=== PATIENT | male | born 1985 | race Caucasian/White ===

== ENCOUNTER → 2023-02-11 15:30 | Outpatient (BNVA) | payer MEDICAID, SELFPAY | PROVIDERS: Visit Provider Family Medicine | DX: E11.9 Type 2 diabetes mellitus without complications (principal); I10 Essential (primary) hypertension | CPT/HCPCS: 80053; 80061; 83036; 84439; 84443; 85025 ==

== ENCOUNTER 2023-11-11 18:16 | Emergency (ER) | payer MEDICAID, SELFPAY ==
[2023-11-11 18:17] VITALS: BP 160/106; PULSE 107; RESP 18; TEMP 36.7; O2SAT 95; BMI 29.0
--- NOTE | 2023-11-11 18:44 | ED_ITS ---
HPI - Extremity Problem General: Chief complaint: Extremity Injury, Upper Stated complaint: Right Hand Finger Cut Time Seen by Provider: 11/11/23 18:25 History of Present Illness: Patient presents to the ER with a laceration on his left pinky finger. Patient tried to superglue and duct tape at home but he could not get it to stop bleeding. Bleeding is controlled here. Patient still has good range of motion and sensation of his entire fifth digit. Patient is unsure about his tetanus status. Review of Systems General: Reports: 10 or more systems reviewed and unremarkable except in HPI and below PFSH ED PFSH: Medical History ZACKARY (generalized anxiety disorder) Emphysema lung Moderate major depression Hypertension GERD (gastroesophageal reflux disease) Diabetes Family History Mother Cancer pancreatic Other CAD (coronary artery disease) Diabetes Hypertension Lung disease Psychiatric illness Denies family history of Clotting disorder Dementia Hyperlipidemia Chronic kidney disease (CKD) Anesthesia complication Bleeding disorder Stroke Social History Smoking and tobacco/nicotine status: former use of tobacco/nicotine Quit status (tobacco/nicotine): has quit using Year quit tobacco: 2016 Alcohol intake: never Substance/Drug Use: never Lives independently: Yes Marital status: Single Number of children: 0 Current occupational status: disabled Anna/Anabaptism: None Special anna needs: No Agree to transfusion: Yes Physical Exam Const: COMMON NORMALS: no acute distress, average body habitus, patient oriented x3, no limitations, healthy appearing, alert and well nourished HENMT: COMMON NORMALS: normocephalic, atraumatic, hearing grossly normal bilaterally, external ears normal, Normal external nose present, moist oral mucous membranes and oropharynx normal HEAD & SCALP: normocephalic and atraumatic NOSE: Normal external nose present EXTERNAL EAR: Yes external ears normal Neck/C-Spine: COMMON NORMALS: no JVD Chest: COMMONS NORMALS: normal palpation of entire chest wall Resp: COMMON NORMALS: normal respiratory effort, No retractions, No use of accessory muscles and clear to auscultation bilaterally AUSCULTATION: clear to auscultation bilaterally Cardio: COMMON NORMALS: no JVD, regular rate, regular rhythm, S1 normal heart sound present, S2 normal heart sound present, No gallops present (Cardio), No clicks present (Cardio), No murmurs present (Cardio) and No rub (Cardio) RATE: regular rate RHYTHM: regular rhythm HEART SOUNDS: S1 normal heart sound present and S2 normal heart sound present GI: COMMON NORMALS: Normal to inspection, nondistended, normoactive bowel sounds present and No hepatosplenomegaly present PALPATION: Yes No hepatosplenomegaly present Neuro: COMMON NORMALS: patient oriented x3 SENSORIUM/ORIENTATION: Yes alert Skin: NARRATIVE SKIN EXAM: Laceration to left pinky finger on the medial dorsal side. Neurovascular tendon distally intact. Procedures Laceration Laceration 1: Site: hand Side (If applicable): left Size (cm): 1 Description: linear Depth: simple, single layer Pre-repair: wound explored, irrigated extensively and deep structures intact Skin layer closed with: other (Dermabond) Course Vital Signs: Vital signs: Vital Signs Temperature 98.0 F 11/11/23 18:17 Pulse Rate 94 11/11/23 19:12 Respiratory Rate 16 11/11/23 19:12 Blood Pressure 160/106 11/11/23 18:17 Pulse Oximetry 96 11/11/23 19:12 Oxygen Delivery Me thod Room Air 11/11/23 18:17 MDM - Extremity (Nontraumatic) Medical Decision Making Patient's wound will be cleaned up by nurse, dermabonded, placed in splint and Coban. Differential Diagnosis Unlikely herpes zoster, gout, cellulitis, superficial thrombophlebitis, deep venous thrombosis of upper extremity, lower extremity edema or deep vein thrombosis of lower extremity Medical Records I reviewed the patient's medical records. Lab Data I reviewed the patient's lab results. No radiology studies performed this visit Discharge Plan Discharge Patient Disposition: Home Clinical Impression: Finger laceration Qualifiers: Encounter type: initial encounter Finger: little finger Damage to nail status: without damage Foreign body presence: without foreign body Laterality: left Qualified Code(s): S61.217A - Laceration without foreign body of left little finger without damage to nail, initial encounter Condition: Stable Prescriptions: No Action amlodipine 10 mg tablet 10 mg PO .qnightly Qty: 90 1RF paroxetine HCl 30 mg tablet 60 mg PO DAILY 90 Days Qty: 180 1RF buspirone 30 mg tablet 30 mg PO BID Qty: 180 2RF cyclobenzaprine 5 mg tablet 5 mg PO TID PRN (Reason: muscle spasm) Qty: 30 0RF hydroxyzine pamoate [Vistaril] 50 mg capsule 50 mg PO QID PRN (Reason: itching) Qty: 120 2RF omeprazole 40 mg capsule,delayed release(DR/EC) 40 mg PO DAILY Qty: 60 1RF budesonide-formoterol [Symbicort] 160-4.5 mcg/actuation HFA aerosol inhaler 2 puff inhalation BID Qty: 10.2 0RF albuterol sulfate [Ventolin HFA] 90 mcg/actuation HFA aerosol inhaler See Rx Instructions .ROUTE .COMPLEX Qty: 18 0RF Dose Instruction: INHALE 2 PUFFS BY MOUTH EVERY 6 HOURS NEEDED FOR SHORTNESS OF BREATH FOR WHEEZING Rx Instructions: INHALE 2 PUFFS BY MOUTH EVERY 6 HOURS NEEDED FOR SHORTNESS OF BREATH FOR WHEEZING losartan 50 mg tablet 50 mg PO DAILY Qty: 60 1RF metformin 500 mg tablet 500 mg PO DAILY Qty: 60 1RF Discharge Orders: Discharge ED (Routine); Ordered 11/11/23 Ordered By: Charly Vyas Referrals: Nicholas Harman MD [Primary Care Provider] - 1 week Patient Instructions: Finger Laceration (ED) Activity Restrictions/Additional Instructions: Keep splint on minimum of 7 days, keep wound clean and dry but do not soak in water. Allow the Dermabond to start peeling off on its own do not pick or pull at it. Follow-up with your family practice physician within 7 to 10 days for further evaluation and treatment as needed. Coding Level of Care Code ED Tower Crane Operator for Gabby Venegas
[2023-11-11] MEDS: tetanus-dipt-pertussis 0.5 mL SDV IM (19:01)
[2023-11-11 19:12] VITALS: PULSE 94; RESP 16; O2SAT 96
== END 2023-11-11 19:18 | disposition home or self-care (01) ==
PROVIDERS: Emergency Provider Emergency Medicine; PCP Family Medicine
DX: S61.217A Laceration without foreign body of left little finger without damage to nail, initial encounter (principal); Z79.84 Long term (current) use of oral hypoglycemic drugs; J43.9 Emphysema, unspecified; I10 Essential (primary) hypertension; E11.9 Type 2 diabetes mellitus without complications; Z87.891 Personal history of nicotine dependence; X58.XXXA Exposure to other specified factors, initial encounter; Z23 Encounter for immunization
CPT/HCPCS: 12001; 29130; 90471; 90715; 99282

== ENCOUNTER → 2024-03-19 15:48 | Outpatient (BNVA) | payer MEDICAID, SELFPAY | PROVIDERS: PCP Family Medicine; Visit Provider Family Medicine | DX: E11.9 Type 2 diabetes mellitus without complications | CPT/HCPCS: 80053; 83036 ==

== ENCOUNTER 2024-10-01 07:49 | Outpatient (CLI) | payer MEDICAID, SELFPAY ==
--- NOTE | 2024-10-01 08:15 | US_ITS ---
WS: [id number] RIGHT UPPER QUADRANT ULTRASOUND HISTORY: epigastric pain with gallbladder like symptoms COMPARISON: None available. Liver: 18.2 cm in length. Liver is measuring slightly enlarged. Coarse echotexture throughout the liver with mild heterogeneity. No mass identified and no intrahepatic duct dilatation. Portal Vein: Normal hepatopetal flow with monophasic waveform. Gallbladder: Neck of the gallbladder is difficult to image due to adjacent bowel gas. No stones or sludge identified. There is no wall thickening or pericholecystic fluid. CBD: 0.4 cm Pancreas: Obscured by bowel gas. Right kidney: 9.6 cm in length. Poorly visualized kidney due to body habitus. No hydronephrosis. Mass would be difficult to exclude. Aorta and IVC: Limited. No ascites. US/US gall bladder [id number] IMPRESSION: 1. No cholelithiasis. 2. Neck of the gallbladder is difficult to visualize due to patient's body hab itus. 3. Mild hepatic steatosis and hepatomegaly. 4. RIGHT kidney and pancreas are poorly visualized.
== END 2024-10-01 07:50 | disposition home or self-care (01) ==
PROVIDERS: PCP Family Medicine; Visit Provider Emergency Medicine
DX: R10.9 Unspecified abdominal pain (principal); K76.0 Fatty (change of) liver, not elsewhere classified; R16.0 Hepatomegaly, not elsewhere classified; R93.2 Abnormal findings on diagnostic imaging of liver and biliary tract
CPT/HCPCS: 76705

== ENCOUNTER → 2024-11-05 15:10 | Outpatient (BNVA) | payer MEDICAID, SELFPAY | PROVIDERS: PCP Family Medicine; Visit Provider Family Medicine | DX: I10 Essential (primary) hypertension (principal); E11.9 Type 2 diabetes mellitus without complications | CPT/HCPCS: 80053; 80061; 83036; 85025 ==